=== PATIENT | female | born 1975 | race Caucasian/White ===

== ENCOUNTER 2018-12-19 21:16 | Emergency (ER) | payer SELFPAY | END 2018-12-19 21:48 | disposition home or self-care (01) | LOC: NAV ERS 21:16 | DX: H65.93 Unspecified nonsuppurative otitis media, bilateral (principal); J06.9 Acute upper respiratory infection, unspecified | CPT/HCPCS: 99282 ==

== ENCOUNTER 2023-10-30 13:41 | Emergency (ER) | payer SELFPAY ==
[2023-10-30 14:17] LABS: Bilirubin Negative (Negative); Blood, Urine Large (Negative); Glucose, Urine (Dipstick) Negative (Negative); Ketone, Urine Negative (Negative); Leukocyte Small (Negative); Nitrite Positive (Negative); Protein, Urine (Dipstick) 100 mg/dL (Neg-Trace); Specific Gravity, Urine 1.025 (1.005-1.030); Urobilinogen 0.2 mg/dL (Less than 2)
[2023-10-30 14:18] LABS: Bacteria/HPF 1+ HPF (None Seen); CAUTI Indications for Culture Pelvic or flank pain; Clarity Hazy (Clear); RBC/HPF Greater than 50 HPF (0-3); Squamous Epithelial 0-3 HPF (0-3)
[2023-10-30 14:21] LABS: Urine Culture Reflex Yes Yes
[2023-10-30] MEDS ORDERED: Cephalexin 250 MG CAP ONE (14:49)
[2023-10-30] MEDS ORDERED: Cipro 250 MG TAB ONE (15:05)
[2023-10-30] MEDS ORDERED: Ibuprofen 800 MG TAB ONE (15:06)
== END 2023-10-30 15:14 | disposition home or self-care (01) ==
LOC: NAV ERS 13:41
DX: N39.0 Urinary tract infection, site not specified (principal)
CPT/HCPCS: 81001; 87077; 87086; 87186; 99283

== ENCOUNTER 2024-04-29 09:36 | Emergency (ER) | payer BC, SELFPAY ==
[2024-04-29 10:06] LABS: #Basophils 0.1 thou/uL (0.0-0.2); #Eosinophils 0.1 thou/uL (0.0-0.7); #Lymphocytes 1.4 thou/uL (1.20-3.40); #Monocytes 0.5 thou/uL (0.11-0.59); #Neutrophils 9.2 thou/uL (1.40-6.50); %Basophils 0.8 % (0.0-1.0); %Eosinophils 0.5 % (0.0-10.0); %Lymphocytes 12.5 % (21.0-51.0); %Neutrophils 82.2 % (42.0-75.0); Hematocrit 39.6 % (36.0-47.0); Hemoglobin 12.7 g/dL (12.0-16.0); Mean Corpuscular HGB CONC 31.9 g/dL (32.0-36.0); Mean Corpuscular Volume 90.7 fl (78.0-98.0); Mean Platelet Volume 7.6 fL (7.4-10.4); Platelet Count 437 10x3/uL (130-400); RBC Distribution Width 11.9 % (11.5-14.5); Red Blood Cell (RBC) Count 4.37 mill/uL (4.20-5.40); White Blood Cell (WBC) Count 11.2 10x3/uL (4.8-10.8)
[2024-04-29 10:15] LABS: ALT (SGPT) 18 U/L (8-55); AST (SGOT) 15 U/L (5-34); Albumin 3.9 g/dL (3.5-5.0); Alkaline Phosphatase 83 U/L (40-110); Anion Gap 14 mmol/L (10-20); BUN (Urea Nitrogen) 13 mg/dL (7.0-18.7); Bilirubin, Total 0.2 mg/dL (0.2-1.2); Calc. Creatinine Clearance 0 mL/min (70-130); Calcium 9.7 mg/dL (7.8-10.44); Carbon Dioxide 21 mmol/L (22-29); Chloride 107 mmol/L (98-107); Estimated GFR 105; Globulin 3.8 g/dL (2.4-3.5); Glucose 93 mg/dL (70-105); Potassium 4.1 mmol/L (3.5-5.1); Protein, Total 7.7 g/dL (6.0-8.3); Sodium 138 mmol/L (136-145)
[2024-04-29 10:16] LABS: Troponin I Less than 0.010 ng/mL (< 0.028)
[2024-04-29] MEDS ORDERED: Metoprolol Tartrate 5 MG (5 mL) VIAL ONE (10:31)
[2024-04-29] MEDS ORDERED: diphenhydrAMINE 50 MG/ML VIAL ONE (10:31)
[2024-04-29] MEDS ORDERED: Sodium Chloride 0.9% 1,000 ML ONE (10:31)
[2024-04-29] MEDS ORDERED: Metoclopramide HCl 10 MG (2 mL) VIAL ONE (10:31)
[2024-04-29] MEDS ORDERED: Metoprolol Tartrate 25 MG TAB ONE (12:36)
== END 2024-04-29 12:43 | disposition home or self-care (01) ==
LOC: NAV ERS 09:36
DX: R51.9 Headache, unspecified (principal); I10 Essential (primary) hypertension; F17.210 Nicotine dependence, cigarettes, uncomplicated; Z79.899 Other long term (current) drug therapy
CPT/HCPCS: 71045; 80053; 84484; 85025; 87428; 93005; 94760; 96365; 96366; 96375; J1200; J2765; J7030

== ENCOUNTER 2024-12-06 10:17 | Emergency (ER) | payer BC ==
[~2024-12-06 10:17] MED LIST: Iopamidol 370 76% 100 ML VIAL ONE
[2024-12-06 10:45] LABS: #Basophils 0.1 thou/uL (0.0-0.2); #Eosinophils 0.1 thou/uL (0.0-0.7); #Lymphocytes 2.2 thou/uL (1.20-3.40); #Monocytes 0.8 thou/uL (0.11-0.59); #Neutrophils 12.5 thou/uL (1.40-6.50); %Basophils 0.7 % (0.0-1.0); %Eosinophils 0.6 % (0.0-10.0); %Lymphocytes 14.2 % (21.0-51.0); %Monocytes 5.0 % (0.0-10.0); %Neutrophils 79.5 % (42.0-75.0); Hematocrit 42.6 % (36.0-47.0); Hemoglobin 14.0 g/dL (12.0-16.0); Mean Corpuscular Hemoglobin 30.3 pg (27.0-31.0); Mean Corpuscular Volume 92.3 fl (78.0-98.0); Platelet Count 388 10x3/uL (130-400); Red Blood Cell (RBC) Count 4.62 mill/uL (4.20-5.40); White Blood Cell (WBC) Count 15.7 10x3/uL (4.8-10.8)
[2024-12-06 11:21] LABS: INR-International Normal Ratio 1.0; Prothrombin Time 12.8 sec (12.0-14.7)
[2024-12-06 11:21] LABS: Potassium 6.0 mmol/L (3.5-5.1)
[2024-12-06 11:22] LABS: PTT 31.7 sec (22.9-36.1); Troponin I Less than 0.010 ng/mL (< 0.028)
[2024-12-06 11:23] LABS: ALT (SGPT) 20 U/L (Less than 34); AST (SGOT) 46 U/L (11-34); Albumin 3.9 g/dL (3.1-4.5); Alkaline Phosphatase 71 U/L (40-110); Anion Gap 18 mmol/L (10-20); BUN (Urea Nitrogen) 13 mg/dL (7.0-18.7); Bilirubin, Total 0.2 mg/dL (0.3-1.2); Calc. Creatinine Clearance 0 mL/min (70-130); Carbon Dioxide 16 mmol/L (22-29); Globulin 3.7 g/dL (2.4-3.5)
[2024-12-06 11:24] LABS: Chloride 107 mmol/L (98-107); Sodium 135 mmol/L (136-145)
[2024-12-06 11:25] LABS: Calcium 8.9 mg/dL (7.6-10.4); Glucose 97 mg/dL (70-105)
[2024-12-06 11:58] LABS: Potassium 4.1 mmol/L (3.5-5.1)
[2024-12-06] MEDS ORDERED: Aspirin Chewable 81 MG TAB ONE (11:58)
== END 2024-12-06 13:10 | disposition short-term general hospital (02) ==
LOC: NAV ERS 10:17
DX: R51.9 Headache, unspecified (principal); D72.829 Elevated white blood cell count, unspecified; R29.700 NIHSS score 0; I10 Essential (primary) hypertension; F17.210 Nicotine dependence, cigarettes, uncomplicated; Z79.899 Other long term (current) drug therapy
CPT/HCPCS: 36415; 70450; 70496; 70498; 71045; 80053; 84484; 85025; 85610; 85730; 93005; 94760; Q9967